=== PATIENT | female | born 1970 | race Caucasian/White ===

== ENCOUNTER 2019-07-31 20:50 | Inpatient (IN) | payer OTHER ==
[2019-07-31] MEDS ORDERED: SODIUM CHLORIDE 1,000 ML IV ONE (21:12)
[2019-07-31] MEDS ORDERED: KETOROLAC TROMETHAMINE 30 MG/1 ML VIAL IVPUSH ONE (21:13)
[2019-07-31] MEDS ORDERED: ONDANSETRON 4 MG/2 ML VIAL IVPUSH ONE (21:13)
[2019-07-31] MEDS ORDERED: KETOROLAC TROMETHAMINE 30 MG/1 ML VIAL ONE (21:15)
[2019-07-31] MEDS ORDERED: ONDANSETRON 4 MG/2 ML VIAL ONE (21:16)
[2019-07-31 21:26] LABS: BASO % 0.5 % (0-2.0)
[2019-07-31 21:28] LABS: EPITHELIAL CELLS MODERATE /hpf
[2019-07-31 21:31] LABS: EOS % 0.5 % (0-4.5); HEMATOCRIT 43.2 % (32.4-45.2); HEMOGLOBIN 14.2 GM/dl (10.7-15.3); LYMPH % 19.4 % (8-40); MCHC 32.9 g/dl (32.0-36.0); MEAN CELL VOLUME 85.1 fl (80-96); MEAN PLT VOLUME 8.6 fl (7.5-11.1); MONO % 6.6 % (3.8-10.2); PLATELET COUNT 366 K/MM3 (134-434); RBC 5.08 M/mm3 (3.60-5.2); RDW 13.9 % (11.6-15.6); WHITE BLOOD COUNT 11.8 K/mm3 (4.0-10.8)
[2019-07-31 21:32] LABS: ALBUMIN 3.9 g/dl (3.4-5.0); BILIRUBIN,TOTAL 1.6 mg/dl (0.2-1); CALCIUM 8.7 mg/dl (8.5-10); CREATININE 0.8 mg/dl (0.55-1.3); POTASSIUM 3.6 mmol/L (3.5-5.1); TOT PROT 7.7 g/dl (6.4-8.2)
[2019-07-31] MEDS ORDERED: PIPERACILLIN/TAZOB 4.5 GM 4.5 GM in DEXTROSE 5%-WATER 100 ML IVPB ONE (22:16)
[2019-07-31] MEDS ORDERED: PIPERACILLIN/TAZOBACTAM 4.5 GM VIAL IVPB ONE (22:21)
--- NOTE | 2019-07-31 22:57 | PDOC ---
Documentation entered by Audelia Pereira SCRIBE, acting as scribe for Sukhjinder Melendez MD. Sukhjinder Melendez MD: This documentation has been prepared by the scribe, Audelia Pereira SCRIBE, under my direction and personally reviewed by me in its entirety. I confirm that the documentation accurately reflects all work , treatment, procedures, and medical decision making performed by me. History of Present Illness - General Chief Complaint: Pain Stated Complaint: RUQ PAIN SINCE WEDNESDAY,NAUSEA History Source: Patient Exam Limitations: No Limitations - History of Present Illness Initial Comments: 07/31/19 21:10 The patient is a 49-year-old female who presents to the emergency department with right upper quadrant pain. The patient reports she was on vacation at [facility], and day two of vacation, she had an onset of severe right upper quadrant pain associated with nausea and dark-colored urine. The patient reports the pain improved; however, after having rice and bread, the pain returned. The patient states she returned from vacation today and came to the ER straight from the airport. Denies vomiting, diarrhea, or fever. PAST MEDICAL HISTORY: No significant past medical history PAST SURGICAL HISTORY: no significant history FAMILY HISTORY: Sister and Grandmother: Gallstones. SOCIAL HISTORY: Pt lives with family and is employed. MEDICATIONS: reviewed ALLERGIES: As per nursing notes Review of system: General: No fevers or chills, no weakness, no weight loss HEENT: No change in vision. No sore throat,. No ear pain CardioVascular: No chest pain or shortness of breath Respiratory:No cough, or wheezing. Gastrointestinal: +right upper quadrant pain and nausea. no vomiting or diarrhea. Genitourinary: +dark colored urine. No dysuria, hematuria, or frequency Musculoskeletal: No joint or muscle pain or swelling Neurologic: No headache, vertigo, dizziness or loss of consciousness Psychiatric: nor depression Skin: No rashes or easy bruising Endocrine: no increased thirst or abnormal weight change Allergic: no skin or latex allergy All other systems reviewed and normal Physical exam: General: Well-nourished well-developed individual, no acute distress HEENT: Throat: Normal, tonsils normal, no erythema or exudate Neck: Supple, no meningeal signs, no lymphadenopathy Eyes :Pupils equal reactive and round, extraocular motion intact Chest: Nontender to palpation Cardiac: S1-S2 normal, regular rate and rhythm, no murmurs rubs or gallops Respiratory: Lungs clear to auscultation bilateral Abdomen: +tenderness on palpation to the right upper quadrant. No rebound or guarding. Normal bowel sounds. Extremities: Warm, dry, no cyanosis, clubbing, or edema Skin: No rashes Neuro: Alert and oriented x3, nonfocal exam, grossly intact, normal gait Psych: Normal mood and affect This is a 49-year-old female who comes in complaining of right upper quadrant pain that started several days ago while she was on vacation out of the country. Patient said pain improved and then she had some food to eat which brought the pain back on again. Patient is complaining of moderate pain here in the emergency room. Patient is complaining of some nausea but no vomiting or diarrhea. Patient has a family history of gallstones. Work-up initiated including CBC, comp, lipase and ultrasound of her gallbladder. Ultrasound shows patient has acute calculus cholecystitis without ductal dilatation. Patient given Zosyn and will be admitted to an inpatient bed prior to removal of her gallbladder Past History - Past Medical History Allergies/Adverse Reactions: Allergies Allergy/AdvReac Type Severity Reaction Status Date / Time banana [Banana] Allergy Intermediate BLOATING Verified 07/31/19 20:53 AND ABDOMINAL PAIN onion Allergy Verified 07/31/19 20:53 Home Medications: Ambulatory Orders Gabapentin [Neurontin] 2,400 mg PO DAILY 09/13/14 Asthma: No Diabetes: No HTN: No Kidney Stones: Yes - Immunization History Immunization Up to Date: No - Psycho Social/Smoking Cessation Hx Smoking History: Never smoked Have you smoked in the past 12 months: No Hx Alcohol Use: Yes (OCCASIONAL) Substance Use Type: None *Physical Exam - Vital Signs Last Vital Signs Temp Pulse Resp BP Pulse Ox 98 F 98 H 16 134/91 100 07/31/19 20:56 07/31/19 20:56 07/31/19 20:56 07/31/19 20:56 07/31/19 20:56 ED Treatment Course - LABORATORY CBC & Chemistry Diagram: 07/31/19 21:10 07/31/19 21:10 - ADDITIONAL ORDERS Additional order review: Laboratory Results 07/31/19 21:00 Urine Color Yellow Urine Appearance Clear Urine pH 5.5 Urine Protein 2+ H Urine Glucose (UA) Negative Urine Ketones 2+ H Urine Blood 2+ H Urine Nitrite Positive H Urine Bilirubin 2+ H Urine Urobilinogen 0.2 Ur Leukocyte Esterase Negative - RADIOLOGY Radiology Studies Ordered: Category Date Time Status GALLBLADDER US [US] Stat Ultrasound 07/31/19 21:07 Ordered Discharge - Discharge Information Problems reviewed: Yes Clinical Impression/Diagnosis: Acute cholecystitis Condition: Stable Disposition: HOME - Admission Yes - Follow up/Referral - Patient Discharge Instructions - Post Discharge Activity
[2019-07-31] MEDS ORDERED: LACTATED RINGERS SOLUTION 1,000 ML IV SCH (23:30)
[2019-07-31] MEDS ORDERED: ACETAMINOPHEN 1000 MG/100 ML VIAL (NON FORMULARY) IVPB PRN (23:38)
[2019-07-31] MEDS ORDERED: morphine SULFATE 4 MG/ML VIAL IVPUSH PRN (23:41)
[2019-08-01 01:22] VITALS: BMI 38.1
[2019-08-01] MEDS ORDERED: PIPERACILLIN/TAZOBACTAM 3.375 GM VIAL IVPB ONE ×2 (01:23→11:18)
[2019-08-01] MEDS ORDERED: DEXTROSE 5%-WATER - 50 ML IVPB ONE (01:24)
[2019-08-01] MEDS: PIPERACILLIN/TAZOB 3.375 GM 3.375 GM in DEXTROSE 5%-WATER - 50 ML IVPB SCH ×2 (01:26→14:46)
[2019-08-01] MEDS: GABAPENTIN 400 MG CAPSULE PO SCH ×3 (06:51→22:19)
[2019-08-01 08:03] LABS: BASO % 0.4 % (0-2.0); EOS % 1.1 % (0-4.5); HEMATOCRIT 36.1 % (32.4-45.2); HEMOGLOBIN 11.8 GM/dl (10.7-15.3); LYMPH % 33.2 % (8-40); MCHC 32.8 g/dl (32.0-36.0); MEAN CELL VOLUME 85.1 fl (80-96); MEAN PLT VOLUME 8.8 fl (7.5-11.1); NEUT % 56.3 % (42.8-82.8); PLATELET COUNT 294 K/MM3 (134-434); RBC 4.24 M/mm3 (3.60-5.2); RDW 13.7 % (11.6-15.6)
[2019-08-01 08:08] LABS: ALBUMIN 2.9 g/dl (3.4-5.0); BILIRUBIN,TOTAL 1.3 mg/dl (0.2-1); CALCIUM 8.2 mg/dl (8.5-10); CREATININE 0.9 mg/dl (0.55-1.3); MAGNESIUM 2.1 mg/dL (1.8-2.4); POTASSIUM 3.9 mmol/L (3.5-5.1); TOT PROT 5.8 g/dl (6.4-8.2)
--- NOTE | 2019-08-01 08:14 | HP ---
CHIEF COMPLAINT: Right upper quadrant abdominal pain HISTORY OF PRESENT ILLNESS: 49 year-old female with no significant PMH presented to the ED with right upper quadrant pain. The patient reports she was on vacation at [facility], and day two of vacation, she had an onset of severe right upper quadrant pain associated with nausea and dark-colored urine. The patient reports the pain improved; however, after having rice and bread, the pain returned. The patient states she returned from vacation today and came to the ER straight from the airport. Denies vomiting, diarrhea, or fever. ER course was notable for: (1) WBC 11.8 (2) Afebrile (3) CTAP: acute calculus cholecystitis Recent Travel: [facility] PAST MEDICAL HISTORY: None reported PAST SURGICAL HISTORY: None reported Social History: Smoking: no Alcohol:no Drugs: no Allergies banana [Banana] Allergy (Intermediate, Verified 07/31/19 20:53) BLOATING AND ABDOMINAL PAIN onion Allergy (Verified 07/31/19 20:53) HOME MEDICATIONS: Home Medications Medication Instructions Recorded Gabapentin [Neurontin] 2,400 mg PO DAILY 09/13/14 REVIEW OF SYSTEMS CONSTITUTIONAL: Absent: fever, chills, diaphoresis, generalized weakness, malaise, loss of appetite, weight change HEENT: Absent: rhinorrhea, nasal congestion, throat pain, throat swelling, difficulty swallowing, mouth swelling, ear pain, eye pain, visual changes CARDIOVASCULAR: Absent: chest pain, syncope, palpitations, irregular heart rate, lightheadedness , peripheral edema RESPIRATORY: Absent: cough, shortness of breath, dyspnea with exertion, orthopnea, wheezing, stridor, hemoptysis GASTROINTESTINAL: +abdominal pain, nausea Absent: abdominal pain, abdominal distension, nausea, vomiting, diarrhea, constipation, melena, hematochezia GENITOURINARY: +dark-colored urine Absent: dysuria, frequency, urgency, hesitancy, hematuria, flank pain, genital pain MUSCULOSKELETAL: Absent: myalgia, arthralgia, joint swelling, back pain, neck pain SKIN: Absent: rash, itching, pallor HEMATOLOGIC/IMMUNOLOGIC: Absent: easy bleeding, easy bruising, lymphadenopathy, frequent infections ENDOCRINE: Absent: unexplained weight gain, unexplained weight loss, heat intolerance, cold intolerance NEUROLOGIC: Absent: headache, focal weakness or paresthesias, dizziness, unsteady gait, seizure, mental status changes, bladder or bowel incontinence PSYCHIATRIC: Absent: anxiety, depression, suicidal or homicidal ideation, hallucinations. PHYSICAL EXAMINATION Vital Signs - 24 hr 07/31/19 08/01/19 08/01/19 20:56 00:47 01:29 Temperature 98 F 98.6 F 97.9 F Pulse Rate 98 H 80 Pulse Rate [ 68 Left] Respiratory 16 19 Rate Blood Pressure 134/91 130/59 L Blood Pressure 111/62 [Right Arm] O2 Sat by Pulse 100 98 Oximetry (%) 08/01/19 08/01/19 05:00 06:17 Temperature 97.6 F Pulse Rate 58 L Pulse Rate [ Left] Respiratory 17 Rate Blood Pressure 132/67 Blood Pressure [Right Arm] O2 Sat by Pulse 98 Oximetry (%) GENERAL: Awake, alert, and fully oriented, in no acute distress. HEAD: Normal with no signs of trauma. EYES: Pupils equal, round and reactive to light, extraocular movements intact, sclera anicteric, conjunctiva clear. LUNGS: Breath sounds equal, clear to auscultation bilaterally. No wheezes, and no crackles. No accessory muscle use. HEART: Regular rate and rhythm, normal S1 and S2 without murmur, rub or gallop. ABDOMEN: Soft, tenderness over RUQ UPPER EXTREMITIES: 2+ pulses, warm, well-perfused. No cyanosis. No clubbing. No peripheral edema. LOWER EXTREMITIES: 2+ pulses, warm, well-perfused. No calf tenderness. No peripheral edema. NEUROLOGICAL: Cranial nerves II-XII intact. Normal speech. Laboratory Results - last 24 hr 07/31/19 07/31/19 07/31/19 21:00 21:00 21:10 WBC RBC Hgb Hct MCV MCH MCHC RDW Plt Count MPV Absolute Neuts (auto) Neutrophils % Lymphocytes % Monocytes % Eosinophils % Basophils % Sodium Potassium Chloride Carbon Dioxide Anion Gap BUN Creatinine Est GFR (CKD-EPI)AfAm Est GFR (CKD-EPI)NonAf Random Glucose Calcium Magnesium Total Bilirubin AST ALT Alkaline Phosphatase Creatine Kinase Troponin I < 0.03 Total Protein Albumin Lipase Urine Color Yellow Urine Appearance Clear Urine pH 5.5 Urine Protein 2+ H Urine Glucose (UA) Negative Urine Ketones 2+ H Urine Blood 2+ H Urine Nitrite Positive H Urine Bilirubin 2+ H Urine Urobilinogen 0.2 Ur Leukocyte Esterase Negative Urine RBC 10-20 Urine WBC 5-10 Ur Transition Epith Cell Moderate Urine Bacteria Moderate Urine HCG, Qual Negative 07/31/19 07/31/19 07/31/19 21:10 21:10 21:10 WBC 11.8 H RBC 5.08 Hgb 14.2 Hct 43.2 MCV 85.1 MCH 28.0 MCHC 32.9 RDW 13.9 D Plt Count 366 MPV 8.6 Absolute Neuts (auto) 8.5 Neutrophils % 73.0 Lymphocytes % 19.4 Monocytes % 6.6 Eosinophils % 0.5 Basophils % 0.5 Sodium 136 Potassium 3.6 Chloride 101 Carbon Dioxide 27 Anion Gap 8 BUN 13.0 Creatinine 0.8 Est GFR (CKD-EPI)AfAm 100.33 Est GFR (CKD-EPI)NonAf 86.57 Random Glucose 114 H Calcium 8.7 Magnesium Total Bilirubin 1.6 H AST 23 ALT 21 Alkaline Phosphatase 106 Creatine Kinase 43 Troponin I Total Protein 7.7 Albumin 3.9 Lipase 55 L Urine Color Urine Appearance Urine pH Urine Protein Urine Glucose (UA) Urine Ketones Urine Blood Urine Nitrite Urine Bilirubin Urine Urobilinogen Ur Leukocyte Esterase Urine RBC Urine WBC Ur Transition Epith Cell Urine Bacteria Urine HCG, Qual 08/01/19 08/01/19 07:20 07:20 WBC 9.0 RBC 4.24 Hgb 11.8 Hct 36.1 D MCV 85.1 MCH 28.0 MCHC 32.8 RDW 13.7 Plt Count 294 MPV 8.8 Absolute Neuts (auto) 5.1 Neutrophils % 56.3 Lymphocytes % 33.2 Monocytes % 9.0 Eosinophils % 1.1 Basophils % 0.4 Sodium 139 Potassium 3.9 Chloride 106 Carbon Dioxide 27 Anion Gap 6 L BUN 14.0 Creatinine 0.9 Est GFR (CKD-EPI)AfAm 87.02 Est GFR (CKD-EPI)NonAf 75.08 Random Glucose 91 Calcium 8.2 L Magnesium 2.1 Total Bilirubin 1.3 H AST 17 ALT 19 Alkaline Phosphatase 81 D Creatine Kinase Troponin I Total Protein 5.8 L Albumin 2.9 L Lipase Urine Color Urine Appearance Urine pH Urine Protein Urine Glucose (UA) Urine Ketones Urine Blood Urine Nitrite Urine Bilirubin Urine Urobilinogen Ur Leukocyte Esterase Urine RBC Urine WBC Ur Transition Epith Cell Urine Bacteria Urine HCG, Qual ASSESSMENT/PLAN: 49 year-old female with no significant PMH presented to the ED with right upper quadrant pain. Admitted for acute calculus cholecystitis. Acute calculus cholecystitis --NPO, IV fluids --seen and evaluated by surgery, plan is for lap dari later today --start Zosyn DVT prophylaxis: SCDs Dispo: continues to require inpatient care. Full code. Visit type - Emergency Visit Emergency Visit: Yes ED Registration Date: 07/31/19 Care time: The patient presented to the Emergency Department on the above date and was hospitalized for further evaluation of their emergent condition. - New Patient This patient is new to me today: Yes Date on this admission: 08/08/19 - Critical Care Critical Care patient: No
--- NOTE | 2019-08-01 08:24 | CONSULT ---
- Consultation REQUESTING PROVIDER: CONSULT REQUEST: We have been asked to surgically evaluate this patient for cholecystitis PCP:Criselda Carney HISTORY OF PRESENT ILLNESS: 49yo F admitted for acute cholecystitis. Pt states that she was on vacation when she started having RUQ pain 5 days ago, that has been gradually getting worse. Pt states pain is associated with nausea and vomiting and she has not been able to tolerate PO. Pt states she has a history of gallbladder issues, but they were usually just discomfort after eating fatty foods, never this bad before. Pt states she has had intermittent fevers. Denies SOB, CP. PMHx: Denies PSHx: Denies Home Medications Medication Instructions Recorded Gabapentin [Neurontin] 2,400 mg PO DAILY 09/13/14 Allergies Allergy/AdvReac Type Severity Reaction Status Date / Time banana [Banana] Allergy Intermediate BLOATING Verified 07/31/19 20:53 AND ABDOMINAL PAIN onion Allergy Verified 07/31/19 20:53 REVIEW OF SYSTEMS: CONSTITUTIONAL: Absent: fever, chills, diaphoresis, generalized weakness, malaise, loss of appetite, weight change CARDIOVASCULAR: Absent: chest pain, syncope, palpitations, irregular heart rate, lightheadedness , peripheral edema RESPIRATORY: Absent: cough, shortness of breath, dyspnea with exertion, wheezing, stridor, hemoptysis GASTROINTESTINAL: Absent: abdominal pain, abdominal distension, nausea, vomiting, diarrhea, constipation, melena, hematochezia GENITOURINARY: Absent: dysuria, frequency, urgency, hesitancy, hematuria, flank pain, genital pain PHYSICAL EXAM: GENERAL: Awake, alert, and fully oriented, in no acute distress. HEAD: Normal with no signs of trauma. EYES: PERRL, sclera anicteric, conjunctiva clear. NECK: Normal ROM, supple without lymphadenopathy, JVD, or masses. LUNGS: Clear to auscultation bilat anteriorly. No wheezes, and no crackles. No accessory muscle use. HEART: Regular rate and rhythm. No murmurs ABDOMEN: Soft, RUQ tenderness, +Reyes sign, not distended, no guarding, no rebound, no masses. No organomegaly. MUSCULOSKELETAL: Normal ROM at all joints. No bony deformities or tenderness. No CVA tenderness. UPPER EXTREMITIES: warm, well-perfused. No cyanosis. Cap refill <2 seconds. No peripheral edema. LOWER EXTREMITIES: warm, well-perfused. No calf tenderness. No peripheral edema. NEUROLOGICAL: Normal speech, gait not observed. PSYCH: Cooperative. Good eye contact. Appropriate mood and affect. SKIN: Warm, dry, normal turgor, no rashes or lesions noted. Vital Signs Temperature 97.6 F 08/01/19 05:00 Pulse Rate 58 L 08/01/19 05:00 Respiratory Rate 17 08/01/19 05:00 Blood Pressure 132/67 08/01/19 05:00 O2 Sat by Pulse Oximetry (%) 98 08/01/19 06:17 Lab Results WBC 9.0 K/mm3 (4.0-10.8) 08/01/19 07:20 RBC 4.24 M/mm3 (3.60-5.2) 08/01/19 07:20 Hgb 11.8 GM/dl (10.7-15.3) 08/01/19 07:20 Hct 36.1 % (32.4-45.2) D 08/01/19 07:20 MCV 85.1 fl (80-96) 08/01/19 07:20 MCHC 32.8 g/dl (32.0-36.0) 08/01/19 07:20 RDW 13.7 % (11.6-15.6) 08/01/19 07:20 Plt Count 294 K/MM3 (134-434) 08/01/19 07:20 Sodium 139 mmol/L (136-145) 08/01/19 07:20 Potassium 3.9 mmol/L (3.5-5.1) 08/01/19 07:20 Chloride 106 mmol/L (98-107) 08/01/19 07:20 Carbon Dioxide 27 mmol/L (21-32) 08/01/19 07:20 Anion Gap 6 MMOL/L (8-16) L 08/01/19 07:20 BUN 14.0 mg/dl (7-18) 08/01/19 07:20 Creatinine 0.9 mg/dl (0.55-1.3) 08/01/19 07:20 Random Glucose 91 mg/dl (74-106) 08/01/19 07:20 Calcium 8.2 mg/dl (8.5-10) L 08/01/19 07:20 Abdominal US: Acute cholecystitis no CBD dilatation. Problem List - Problems (1) Acute cholecystitis Assessment/Plan: Plan -will plan for lap dari later today -continue NPO, IVF -abx Pt discussed with Dr. Sampson who agrees with plan Code(s): K81.0 - ACUTE CHOLECYSTITIS
--- NOTE | 2019-08-01 10:28 | OP ---
Operative Note - Note: Operative Date: 08/01/19 Pre-Operative Diagnosis: acute cholecystitis, cholelithaisis Operation: laparoscopic cholecystectomy, lavage. inflamed, edematous, thickened gb. areas of hemorrhage Post-Operative Diagnosis: Same as Pre-op Surgeon: Oseas Rangel Educational Therapist: Bryce Cheng Anesthesiologist/CONSUMER MARKETING ANALYST: Tu Torres Anesthesia: General Specimens Removed: gb Estimated Blood Loss (mls): 50 Operative Report Dictated: Yes
[2019-08-01] MEDS ORDERED: ONDANSETRON 4 MG/2 ML VIAL ONE ×2 (10:29→13:23)
[2019-08-01] MEDS ORDERED: MIDAZOLAM HCL 2 MG/2 ML SINGLE DOSE VIAL ONE (10:30)
[2019-08-01] MEDS ORDERED: DEXAMETHASONE SOD PHOSPHATE 4 MG/1 ML VIAL ONE ×2 (10:30→11:45)
[2019-08-01] MEDS ORDERED: fentaNYL CITRATE 250 MCG/5 ML VIAL ONE (10:30)
[2019-08-01] MEDS ORDERED: ONDANSETRON 4 MG/2 ML VIAL IVPUSH PRN ×2 (10:34→12:55)
[2019-08-01] MEDS ORDERED: morphine SULFATE 4 MG/ML VIAL IVPB PRN (10:34)
[2019-08-01] MEDS ORDERED: ALPRAZolam 0.25 MG TABLET PO PRN (10:40)
[2019-08-01] MEDS ORDERED: BUPIVACAINE HCL/PF 2.5 MG/ML - 30 ML VIAL IJ ONE (10:50)
[2019-08-01] MEDS ORDERED: ROCURONIUM BROMIDE 50 MG/5 ML SYRINGE ONE (11:00)
--- NOTE | 2019-08-01 11:26 | CONS ---
DATE OF CONSULTATION: 08/01/2019 REASON FOR CONSULTATION: Acute cholecystitis, cholelithiasis. BRIEF HISTORY: This is a 49-year-old female who was vacationing in the [facility] when she began developing severe right upper quadrant pain. The pain would feel somewhat better when she did not eat, but as soon as she ate food, her pain would return. She had nausea. She had vomiting. She had a similar but less intense episode several years ago. She states that she gets discomfort normally when she eats fatty foods but nothing like this. PAST MEDICAL HISTORY: Negative. PAST SURGICAL HISTORY: Nil. ALLERGIES: She has no known drug allergies. MEDICATIONS: She takes no GI medications. She takes no blood thinners. FAMILY HISTORY: Negative for malignancy in the immediate family, but there is biliary disease in the family and history of cholecystectomies. SOCIAL HISTORY: She admits to occasional alcohol consumption. Denies tobacco. She has been encouraged to quit. REVIEW OF SYSTEMS: General: Denies fatigue or malaise. Cardiac: Denies chest pain or palpitations. Respiratory: Denies shortness of breath or wheeze. Gastrointestinal: As stated in HPI. Denies diarrhea. Denies blood in her stool. Denies recent weight loss. Genitourinary: Denies dysuria. Musculoskeletal: Denies joint pain. Psychiatric: Denies anxiety, depression, or hearing voices. PHYSICAL EXAMINATION: General: This is an obese 49-year-old female in no acute distress. Vital Signs: She is afebrile. Her vital signs are stable. HEENT: His head is normocephalic. Sclerae anicteric. Neck: Supple. Chest: Clear. Abdomen: Soft. There are no surgical scars. She has significant right upper quadrant tenderness with rebound. Extremities: No edema. DIAGNOSTIC DATA: On review of her laboratory, her white blood cell count was 11.8 on admission. It is normal today on antibiotics. Her chemistries are unremarkable with a mildly elevated total bilirubin of 1.3. On review of her imaging, she has an ultrasound of her gallbladder done, which shows gallstones. It shows a normal common bile duct in size. It shows fatty liver. There is thickening of the gallbladder, overdistention of the gallbladder without pericholecystic fluid. There is also a possible sonographic Reyes sign. The radiologist's impression is acute calculus cholecystitis. ASSESSMENT: This is a 49-year-old female with right upper quadrant pain, nausea, vomiting, initial elevated white blood cell count, peritoneal findings in right upper quadrant, and ultrasound findings consistent with acute cholecystitis. PLAN: Clinically, this is acute cholecystitis. I agree with admission. I agree with antibiotics as patient has been having symptoms for more than 5 days, and she has peritoneal findings right upper quadrant, the best course would be proceed with surgery. In my opinion, the patient will not have a good outcome without surgical intervention. Risks and benefits of surgery have been explained to the patient in detail. These are including, but not limited to, the possibility of conversion to open, the possibility of common bile duct injury, possibility of cystic duct stump leak, possibility of retained stone, possibility of injury to viscera, possibility of blood loss requiring blood transfusion, possibility of future obstruction, possibility of future hernia plus a multitude of medical risks including, but not limited to, cardiac, neurologic, pulmonary, and vascular complications, even . The patient understands these risks and is agreeable to surgery. She has also been offered continued medical management as well as percutaneous drainage of the gallbladder. She declines both those options. She prefers a more definitive nature of surgery, the likely decreased length of stay, the ability to pathologically evaluate her gallbladder, and the elimination of recurrence with future diagnostic uncertainty. DO ARLENE MOYA/[id number]
[2019-08-01] MEDS ORDERED: KETOROLAC TROMETHAMINE 30 MG/1 ML VIAL ONE (11:45)
[2019-08-01] MEDS ORDERED: GLYCOPYRROLATE 0.2 MG/1 ML VIAL ONE ×3 (11:45→12:12)
[2019-08-01] MEDS ORDERED: NEOSTIGMINE METHYLSULFATE 0.5 MG/ML - 10 ML MDV ONE (11:45)
[2019-08-01] MEDS ORDERED: PROPOFOL 20 ML ONE (11:52)
[2019-08-01] MEDS ORDERED: HYDROmorphone HCL CARPU-JECT 1 MG/1 ML DISP.SYRIN IVPUSH PRN (12:55)
[2019-08-01] MEDS ORDERED: LACTATED RINGERS SOLUTION 1,000 ML IV SCH (13:00)
--- NOTE | 2019-08-01 13:04 | EKG ---
Test Reason : Blood Pressure : / mmHG Vent. Rate : 077 BPM Atrial Rate : 077 BPM P-R Int : 142 ms QRS Dur : 070 ms QT Int : 362 ms P-R-T Axes : 044 057 017 degrees QTc Int : 409 ms NORMAL SINUS RHYTHM POSSIBLE LEFT ATRIAL ENLARGEMENT BORDERLINE ECG WHEN COMPARED WITH ECG OF 10-NOV-2008 10:41, NO SIGNIFICANT CHANGE WAS FOUND Confirmed by Tu Awan MD ([id number]) on 08/01/2019 1:04:10 PM Referred By: Confirmed By:Tu Awan MD
[2019-08-01] MEDS ORDERED: HYDROmorphone HCL 0.5 MG/0.5 ML SYRINGE ONE ×2 (13:14→13:33)
[2019-08-01] MEDS: HYDROmorphone HCL CARPU-JECT 1 MG/1 ML DISP.SYRIN IVPUSH PRN ×2 (13:15→13:20)
[2019-08-01] MEDS ORDERED: PROMETHAZINE HCL 25 MG/1 ML VIAL IVPUSH ONE (13:29)
[2019-08-01] MEDS ORDERED: ACETAMINOPHEN INJECTION 100 ML IVPB ONE (13:29)
--- NOTE | 2019-08-01 13:58 | SURG ---
Surgery Lens Inspector Note Lens Inspector: Bryce Cheng PA-C Date of Service: 08/01/19 Diagnosis: acute cholecystitis, cholelithaisis Procedure: laparoscopic cholecystectomy, lavage. inflamed, edematous, thickened gb. areas of hemorrhage I was present for the entirety of the operative procedure. For further detail, please refer to operative report. Visit type - Case Type Case Type: ED Admission - Emergency Emergency Visit: Yes ED Registration Date: 07/31/19 Care time: The patient presented to the Emergency Department on the above date and was hospitalized for further evaluation of their emergent condition. - New patient This patient is new to me today: Yes Date on this admission: 08/01/19 - Critical Care Critical Care patient: No
[2019-08-01] MEDS: D5-1/2NS+20 MEQ KCL - 20 MEQ/1,000 ML INFUS.BAG IV SCH (14:49)
[2019-08-01] MEDS ORDERED: PIPERACILLIN/TAZOB 3.375 GM 3.375 GM in DEXTROSE 5%-WATER - 50 ML IVPB SCH (19:30)
[2019-08-01] MEDS: AMOX TR/POT CLAV 875MG/125MG TABLETS (FP) PO SCH (20:03)
[2019-08-02] MEDS: GABAPENTIN 400 MG CAPSULE PO SCH ×2 (05:40→13:47)
[2019-08-02] MEDS: oxyCODONE HCL 5 MG TABLET PO PRN ×2 (05:40→13:48)
--- NOTE | 2019-08-02 06:46 | PN ---
Progress Note (short form) - Note Progress Note: surgery surgically stable for d/c if ambulating,voiding, and tolerating diet without fever. ok to shower. regular diet. no lifting. 2 weeks off work. recommend 5 days augmentin. no narcotics f/u in about 2 weeks [phone]
--- NOTE | 2019-08-02 07:25 | OP ---
DATE OF OPERATION: 08/01/2019 PREOPERATIVE DIAGNOSIS: Acute cholecystitis and cholelithiasis. POSTOPERATIVE DIAGNOSIS: Acute cholecystitis and cholelithiasis. PROCEDURE PERFORMED: Laparoscopic cholecystectomy, lavage. SURGEON: Oseas Rangel DO PHYSICAL THERAPIST ASSISTANT: Bryce Cheng PA-C ANESTHESIA: Tu Torres MD (general) SPECIMEN: Gallbladder. BLOOD LOSS: 50. INTRAOPERATIVE FINDINGS: A thickened, inflamed, edematous gallbladder with portions of hemorrhage and phlegmonous changes to the omentum adhesed to the gallbladder. DRAINS: None. COMPLICATIONS: None. DISPOSITION: To Recovery in stable condition. BRIEF HISTORY: This is a 49-year-old female who had been having signs and symptoms of acute cholecystitis for 5 days. She was admitted to the [facility] , started on Zosyn antibiotic, and presents now for surgery. DESCRIPTION OF PROCEDURE: The patient was placed in the supine position. General anesthesia was initiated. The abdomen was prepped and draped in sterile fashion. The patient was already on Zosyn antibiotic. A transverse incision was made infraumbilical with a scalpel used to go through skin and subcutaneous tissue. The fascia was lifted with a Margie clamp. Veress needle was inserted. Pneumoperitoneum was created. An 11-mm trocar was placed, followed by the insertion of a 10-mm 0-degree laparoscope. An additional 11-mm trocar was placed subxiphoid and two 5-mm trocars were placed in the right lower quadrant. Attention was turned toward the right lower quadrant. Omentum was lightly adhesed to a very thickened, inflamed gallbladder. As the omentum was peeled off, it was in a phlegmonous shape and full of edema. The gallbladder was mostly pink, thickened , very edematous, with areas of hemorrhage. Veress needle decompression was done in order to enable grasping of the gallbladder. Hydrops was noted. The fundus was then lifted cephalad, the infundibulum retracted laterally. The peritoneal peel was dissected down. A very generous cystic duct was noted as well as a small cystic artery. The cystic artery was clipped and divided. The infundibulum was completely dissected off of the liver bed prior to this, showing a critical view of only 2 structures entering the gallbladder. At this point, with only the cystic duct remaining, it was clearly tapering into the gallbladder. No other structures were noted. However, because it was generous, it was taken with an Ethicon multi- fire vascular load stapler in 1 firing. The staple line was inspected. It was intact. There was no bleeding, no breaks, no sign of ischemia. The gallbladder was then livered from the liver bed using electrocautery. Hemostasis was maintained using electrocautery. The gallbladder was then placed in a specimen bag and removed through the infraumbilical trocar site. A significant fascial dilatation was required in order to enable delivering the gallbladder as well as skin lengthening due to its chronicity, edematousness and size. At this point a vigorous lavage was done and all return was clear. No bleeding was noted. The trocars were removed as pneumoperitoneum was released and again no bleeding was noted. At this point the fascia was closed at the infraumbilical trocar site with multiple interrupted 0 Vicryl sutures. The 4 skin incisions were closed with subcuticular Biosyn and Dermabond was placed, as well as to the Veress needle site. Overall the patient tolerated the procedure well, with no complications. DISPOSITION: To the recovery room and then back to the floor, where she will continue antibiotics, and possibly discharge in the next 24 to 48 hours and would require oral antibiotics at home. DO ARLENE MOYA/[id number] MTDD
[2019-08-02] MEDS: AMOX TR/POT CLAV 875MG/125MG TABLETS (FP) PO SCH ×2 (08:16→16:57)
--- NOTE | 2019-08-02 08:33 | DS ---
Physical Exam: SUBJECTIVE: Patient seen and examined at bedside. Has been voiding, ambulating, tolerating PO. OBJECTIVE: Vital Signs Period Temp Pulse Resp BP Sys/Garvin Pulse Ox Last 24 Hr 97.6 F-98.1 F 59-97 13-21 99-132/50-76 95-100 PHYSICAL EXAM GENERAL: The patient is awake, alert, and fully oriented, in no acute distress. ABDOMEN: Three surgical sites c/d/i, edges well-approximated, no surrounding erythema, swelling, fluctuance EXTREMITIES: 2+ pulses, warm, well-perfused, no edema. NEUROLOGICAL: Cranial nerves II through XII grossly intact. Normal speech, gait not observed. LABS CBCD WBC 9.0 K/mm3 (4.0-10.8) 08/01/19 07:20 RBC 4.24 M/mm3 (3.60-5.2) 08/01/19 07:20 Hgb 11.8 GM/dl (10.7-15.3) 08/01/19 07:20 Hct 36.1 % (32.4-45.2) D 08/01/19 07:20 MCV 85.1 fl (80-96) 08/01/19 07:20 MCHC 32.8 g/dl (32.0-36.0) 08/01/19 07:20 RDW 13.7 % (11.6-15.6) 08/01/19 07:20 Plt Count 294 K/MM3 (134-434) 08/01/19 07:20 MPV 8.8 fl (7.5-11.1) 08/01/19 07:20 CMP Sodium 139 mmol/L (136-145) 08/01/19 07:20 Potassium 3.9 mmol/L (3.5-5.1) 08/01/19 07:20 Chloride 106 mmol/L (98-107) 08/01/19 07:20 Carbon Dioxide 27 mmol/L (21-32) 08/01/19 07:20 Anion Gap 6 MMOL/L (8-16) L 08/01/19 07:20 BUN 14.0 mg/dl (7-18) 08/01/19 07:20 Creatinine 0.9 mg/dl (0.55-1.3) 08/01/19 07:20 Calcium 8.2 mg/dl (8.5-10) L 08/01/19 07:20 Total Bilirubin 1.3 mg/dl (0.2-1) H 08/01/19 07:20 AST 17 U/L (15-37) 08/01/19 07:20 ALT 19 U/L (13-61) 08/01/19 07:20 Alkaline Phosphatase 81 U/L (45-117) D 08/01/19 07:20 Total Protein 5.8 g/dl (6.4-8.2) L 08/01/19 07:20 Albumin 2.9 g/dl (3.4-5.0) L 08/01/19 07:20 HOSPITAL COURSE: Date of Admission:07/31/19 Date of Discharge: 08/02/19 Pre-Hospital Course 49 year-old female with no significant PMH presented to the ED with right upper quadrant pain. The patient reports she was on vacation at [facility], and day two of vacation, she had an onset of severe right upper quadrant pain associated with nausea and dark-colored urine. The patient reports the pain improved; however, after having rice and bread, the pain returned. The patient states she returned from vacation today and [place] airport. Denies vomiting, diarrhea, or fever. ER course (1) WBC 11.8 (2) Afebrile (3) CTAP: acute calculus cholecystitis Subsequent Hospital Course Underwent lap cholecystectomy on 08/01/[address] Rangel. Uncomplicated post- op course. Discharged next day ambulating, voiding, and tolerating diet. Discharged to complete 5-day course of augmentin. Minutes to complete discharge: 35 Discharge Summary Problems reviewed: Yes Reason For Visit: ACUTE CHOLECYSTITIS Current Active Problems Acute cholecystitis (Acute) Condition: Stable - Instructions Diet, Activity, Other Instructions: Dear EVELYN DANIEL, Post Operative Instructions Physical activity Resume your normal everyday activity as tolerated no heavy lifting or exercise until seen by your surgeon. You may walk unlimited amounts of and climb stairs. You may resume driving the car when you feel safe and comfortable behind the wheel. Wound care If you have a bandage, leave it on, and keep dry for 48 - 72 hours.You may shower 2 days after surgery. Diet There are no dietary restrictions. Eat healthy, high-fiber foods. Drink 6 to 8 glasses of liquid each day. This will assist in keeping your bowels are regular. Pain management You may take Tylenol or acetaminophen or Ibuprofen (for example, Motrin, Advil etc.) Any pain prescription medication ordered should be taken as prescribed for moderate to severe pain. Call for any of the following: Severe pain not relieved by medication Fever of 101 or higher Excessive bleeding or drainage on dressing Call the office for a post operative appointment in 7 - 10 days. Referrals: Shaylee Iqbal MD [Primary Care Provider] - Oseas Rangel MD [Staff Physician] - Disposition: HOME - Home Medications Comprehensive Discharge Medication List: Ambulatory Orders Gabapentin [Neurontin] 2,400 mg PO DAILY 09/13/14 This patient is new to me today: No Emergency Visit: Yes ED Registration Date: 07/31/19 Care time: The patient presented to the Emergency Department on the above date and was hospitalized for further evaluation of their emergent condition. Critical Care patient: No - Discharge Referral Referred to [facility] No
[2019-08-02] MEDS ORDERED: ENOXAPARIN NA (PORCINE) 40 MG/0.4 ML DISP.SYRIN SQ SCH (10:00)
[2019-08-02] MEDS ORDERED: PANTOPRAZOLE SODIUM 40 MG VIAL IVPUSH SCH (10:00)
[2019-08-02] MEDS: D5-1/2NS+20 MEQ KCL - 20 MEQ/1,000 ML INFUS.BAG IV SCH (13:47)
[2019-08-02 14:02] VITALS: BP 109/48; PULSE 87; TEMP 98.2
--- NOTE | 2019-08-03 18:22 | PATH ---
Surgical Pathology Report Patient Name: EVELYN DANIEL Med. Rec. #: [id number] /Age/Gender: 1970 (Age: 49) / F Account: [id number] Location: [facility] Taken: 08/01/2019 Received: 08/01/2019 Reported: 08/03/2019 Physicians: Dayana Babcock M.D. Specimen(s) Received GALLBLADDER Clinical History Acute cholecystitis Final Diagnosis GALLBLADDER, CHOLECYSTECTOMY: MARKED ACUTE SUPERIMPOSED ON CHRONIC CHOLECYSTITIS. CHOLELITHIASIS. Electronically Signed Hari Dunn M.D. Gross Description Received in formalin, labeled "gallbladder," is a 7.5 x 3.8 x 2.7 cm. gallbladder with a 0.2 cm. in length portion of cystic duct attached. The outer surface is dorsey-benitez with a focal defect and varies from smooth to shaggy. The lumen contains yellow, sludgelike bile as well as abundant irregular to fragmented choleliths ranging from 0.1-0.7 cm in greatest dimension. The mucosa is dorsey-brown and focally eroded. The wall of the gallbladder measures up to 0.5 cm. in thickness. [employer] sections are submitted in one cassette. 08/02/2019 [facility]08/02/2019
== END 2019-08-02 17:36 | disposition home or self-care (01) | DRG 263 ==
LOC: SUPCPDRO 20:50 → FER 20:50 → FM/S 23:12 → UNDOADMIN 08-01 00:03 → FM/S 08-01 00:03
PROVIDERS: ADMIT Internal Medicine; ATTEND Nurse Practitioner Acute Care
PROC: 0FT44ZZ Resection of Gallbladder, Percutaneous Endoscopic Approach (ICD-10-PCS; principal; 2019-08-01 11:29)
DX: K80.20 Calculus of gallbladder without cholecystitis without obstruction (principal); R10.11 Right upper quadrant pain; R11.2 Nausea with vomiting, unspecified
CPT/HCPCS: 36415; 76705-TC; 80053; 81003; 81015; 82550; 83690; 83735; 84484; 84703; 85025; 93005; 94760; 99285-25; J0131; J7030